=== PATIENT | male | born 1960 | race Caucasian/White ===

== ENCOUNTER 2016-10-12 21:12 | Emergency (ER) | payer OTHER, BC ==
[2016-10-12] MEDS ORDERED: oxyCODONE ER 20 MG TAB.ER PO ONE (21:24)
[2016-10-12] MEDS ORDERED: HYDROmorphone 2 MG/ML SDV IM ONE (21:24)
--- NOTE | 2016-10-12 21:31 | EDM.PDOC ---
ED HPI GENERAL MEDICAL PROBLEM - General Chief Complaint: Upper Extremity Injury/Pain Stated Complaint: PAIN ON THE RT ARM Time Seen by Provider: 10/12/16 21:20 Source of Information: Reports: Patient, Family History Limitations: Reports: No limitations - History of Present Illness INITIAL COMMENTS - FREE TEXT/NARRATIVE: 56 yo male had ORIF of a R hand fx late today in [place]. He got out of the hospital about 5:30 pm with an Rx for immediate relief oxycodone 10 mg with instructions to use 1 po q 12 h prn. His last dose was at 5:30 pm today. Has since taken ibuprofen 800 mg po and still has intolerable pain. Called to [place] and was told to come to the ED. Has a splint on that hand, but not a cast. Has no sedation or nausea so far from the oxydodone. Will be able to get more or stronger pain meds tomorrow from their doctor in [place]. 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, Other (see below) (oxycodone 10 mg immediate relief.) Rt hand Pain Score (Numeric/FACES): 10 - Related Data Allergies Allergy/AdvReac Type Severity Reaction Status Date / Time No Known Allergies Allergy Verified 10/12/16 21:21 Home Meds: Home Meds Citalopram Hydrobromide [Citalopram HBr] 40 mg PO DAILY 06/12/14 [History] Social & Family History - Tobacco Use Smoking Status *Q: Current Every Day Smoker Years of Tobacco use: 40 - Alcohol Use Days Per Week of Alcohol Use: 0 - Recreational Drug Use Recreational Drug Use: No ED ROS GENERAL - Review of Systems Review Of Systems: See Below Constitutional: Reports: no symptoms HEENT: Reports: No symptoms Respiratory: Reports: No Symptoms Cardiovascular: Reports: No symptoms Endocrine: Reports: no symptoms GI/Abdominal: Reports: No symptoms Musculoskeletal: Reports: hand pain (Right) Skin: Reports: no symptoms Neurological: Reports: No Symptoms ED EXAM, GENERAL - Physical Exam Exam: See Below Exam Limited By: Other (extensive padding and splinting material on R hand/ wrist.) General Appearance: alert, WD/WN, no apparent distress Respiratory/Chest: no respiratory distress, lungs clear, normal breath sounds, no accessory muscle use Cardiovascular: regular rate, rhythm, no edema Extremities: other (Good capillary refill and no finger swelling.). No: increased warmth, redness Neurological: alert, oriented, CN II-XII intact, normal cognition, normal gait, no motor/sensory deficits Psychiatric: normal affect, normal mood Skin Exam: Warm, Dry, Intact, Normal color, No rash Lymphatic: no adenopathy Course - Vital Signs Text/Narrative:: Dilaudid 2 mg IM, Oxycontin 20 mg po Last Recorded V/S: Last Vital Signs Temp 35.8 C 10/12/16 21:12 Pulse 72 10/12/16 21:12 Resp 15 10/12/16 21:12 BP 130/69 10/12/16 21:12 Pulse Ox 98 10/12/16 21:12 - Orders/Labs/Meds Meds: Medications Discontinued Medications Generic Name Dose Route Start Last Admin Trade Name Lucia PRN Reason Stop Dose Admin Hydromorphone HCl 2 mg 10/12/16 21:24 10/12/16 21:35 Dilaudid IM 10/12/16 21:25 2 mg ONETIME ONE Administration Oxycodone HCl 20 mg 10/12/16 21:24 10/12/16 21:34 Oxycontin PO 10/12/16 21:25 20 mg ONETIME ONE Administration Departure - Departure Time of Disposition: 22:07 Disposition: Home, Self-Care 01 Condition: fair Clinical Impression: Post-operative pain - Discharge Information Referrals: Ryan Rios MD [Primary Care Provider] - Forms: ED Department Discharge Additional Instructions: Continue your current meds. Elevate your hand. Call your surgeon in the morning for advice.
[2016-10-12 22:20] VITALS: BP 119/70
== END 2016-10-12 22:12 | disposition home or self-care (01) ==
LOC: FB.ED 21:12
DX: G89.18 Other acute postprocedural pain (principal); F17.200 Nicotine dependence, unspecified, uncomplicated; Z79.899 Other long term (current) drug therapy
CPT/HCPCS: 96372; 99283; A9270; J1170

== ENCOUNTER 2018-09-09 02:47 | Emergency (ER) | payer BC ==
[2018-09-09] MEDS ORDERED: Ketorolac 60 MG/2 ML SDV IM ONE (03:03)
[2018-09-09] MEDS ORDERED: Iopamidol 755 Mg/ML 75 ML Bottle IV ONE (03:56)
--- NOTE | 2018-09-09 04:01 | EDM.PDOC ---
ED HPI GENERAL MEDICAL PROBLEM - General Chief Complaint: Back Pain or Injury Stated Complaint: RIB PAIN Time Seen by Provider: 09/09/18 02:47 Source of Information: Reports: Patient History Limitations: Reports: Other (chest wall pain) - History of Present Illness INITIAL COMMENTS - FREE TEXT/NARRATIVE: 58 y.o.w.m came to the ED this am do to right chest wall pain. 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 he was seen at the [facility], rib x rays were taken and found to be neg. Because the pain got worse, he came back to the ED. No N/V/ D, no Dizziness no SOB. He had right lat chest wall pain with palp and by taking a deep breath. No other acute med. issues. BP 147/71 RR 16 Pulse ox 96% on RA pulse 96 temp 36.4 Onset Date: 09/07/18 Onset Time: 08:00 Duration: Day(s): Location: Reports: Chest Quality: Reports: Ache, Dull Severity: Moderate Improves with: Reports: Rest Worsens with: Reports: Movement Context: Reports: Trauma (fell while pumping gas) back Pain Score (Numeric/FACES): 10 - Related Data Allergies Allergy/AdvReac Type Severity Reaction Status Date / Time No Known Allergies Allergy Verified 09/09/18 02:58 Home Meds: Home Meds Citalopram Hydrobromide [Citalopram HBr] 40 mg PO DAILY 06/12/14 [History] Past Medical History HEENT History: Reports: Impaired Vision Genitourinary History: Reports: Renal Calculus Social & Family History - Family History Family Medical History: Noncontributory - Caffeine Use Caffeine Use: Reports: Coffee, Energy Drinks, Soda ED ROS GENERAL - Review of Systems Review Of Systems: See Below Constitutional: Reports: No Symptoms HEENT: Reports: No Symptoms Respiratory: Reports: No Symptoms Cardiovascular: Reports: No Symptoms Endocrine: Reports: No Symptoms GI/Abdominal: Reports: No Symptoms : Reports: No Symptoms Musculoskeletal: Reports: Other (right chest wall pain with deep inspiration) Skin: Reports: No Symptoms Neurological: Reports: No Symptoms Psychiatric: Reports: No Symptoms Hematologic/Lymphatic: Reports: No Symptoms Immunologic: Reports: No Symptoms ED EXAM, GENERAL - Physical Exam Exam: See Below Exam Limited By: No Limitations General Appearance: Alert, WD/WN, Mild Distress Eye Exam: Bilateral Eye: Normal Inspection Ears: Normal External Exam Ear Exam: Bilateral Ear: Auricle Normal Nose: Normal Inspection, Normal Mucosa Throat/Mouth: Normal Inspection, Normal Lips, Normal Voice, No Airway Compromise Head: Atraumatic, Normocephalic Neck: Normal Inspection, Supple, Non-Tender, Full Range of Motion Respiratory/Chest: No Respiratory Distress, Lungs Clear, Decreased Breath Sounds (right lung deu to pain with inspiration) Cardiovascular: Normal Peripheral Pulses, Regular Rate, Rhythm, No Edema, No Gallop Peripheral Pulses: 1+: Radial (L) GI/Abdominal: Normal Bowel Sounds, Soft, Non-Tender, No Organomegaly, No Distention, No Abnormal Bruit, No Mass (Male) Exam: Deferred Rectal (Males) Exam: Deferred Back Exam: Normal Inspection, Full Range of Motion Extremities: Normal Inspection, Normal Range of Motion, Non-Tender, No Pedal Edema Neurological: Alert, Oriented, CN II-XII Intact, Normal Cognition, Normal Gait Psychiatric: Normal Affect, Normal Mood Skin Exam: Warm, Dry, Intact, Normal Color, No Rash Lymphatic: No Adenopathy Course - Vital Signs Text/Narrative:: 58 y.o.w.m came to the ED this am do to right chest wall pain. 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 he was seen at the [facility], rib x rays were taken and found to be neg. Because the pain got worse, he came back to the ED. No N/V/ D, no Dizziness no SOB. He had right lat chest wall pain with palp and by taking a deep breath. No other acute med. issues. BP 147/71 RR 16 Pulse ox 96% on RA pulse 96 temp 36.4 PE: Obese 58 y.o.w.m with right lat CW pain with deep inspiration Imaging: CT chest with contrast: 6th right rib Fx with small pneumo. Impression: Fx'd 6th rib right laterally with small ant pneumothorax Tx: ICE, Toradol Reexam: Improved Plan: D/C with instructions Last Recorded V/S: Last Vital Signs Temp 36.4 C 09/09/18 02:47 Pulse 96 09/09/18 02:47 Resp 16 09/09/18 02:47 BP 147/71 H 09/09/18 02:47 Pulse Ox 94 L 09/09/18 02:47 - Orders/Labs/Meds Orders: Active Orders 24 hr Category Date Time Status Chest w Cont [CT] Stat Exams 09/09/18 03:51 Taken Labs: Laboratory Tests 09/09/18 09/09/18 09/09/18 Range/Units 03:10 03:10 03:10 WBC 9.7 (4.5-12.0) X10-3/uL RBC 5.03 (4.30-5.75) x10(6)uL Hgb 15.3 (13.5-17.8) g/dL Hct 46.4 (30.0-51.3) % MCV 92.4 (80-96) fL MCH 30.5 (27.7-33.6) pg MCHC 33.0 (32.2-35.4) g/dL RDW 12.7 (11.5-15.5) % Plt Count 227 (125-369) X10(3)uL MPV 8.4 (7.4-10.4) fL Neut % (Auto) 67.8 (46-82) % Lymph % (Auto) 14.7 (13-37) % [place] % (Auto) 10.4 (4-12) % Eos % (Auto) 3 (1.0-5.0) % Baso % (Auto) 5 H (0-2) % Neut # (Auto) 6.6 (1.6-8.3) # Lymph # (Auto) 1.4 (0.6-5.0) # [place] # (Auto) 1.0 (0.0-1.3) # Eos # (Auto) 0.3 (0.0-0.8) # Baso # (Auto) 0.4 H (0.0-0.2) # D-Dimer, Quantitative 0.48 (0.0-0.59) mg/LFEU Sodium 139 (135-145) mmol/L Potassium 4.4 (3.5-5.3) mmol/L Chloride 106 (100-110) mmol/L Carbon Dioxide 25 (21-32) mmol/L BUN 20 H (7-18) mg/dL Creatinine 0.8 (0.70-1.30) mg/dL Est Cr Clr Drug Dosing TNP Estimated GFR (MDRD) > 60 (>60) BUN/Creatinine Ratio 25.0 H (9-20) Glucose 121 H (80-116) mg/dL Calcium 8.3 L (8.6-10.2) mg/dL Total Bilirubin 0.5 (0.1-1.3) mg/dL Direct Bilirubin 0.13 (0.10-0.20) mg/dL AST 14 (5-25) IU/L ALT 18 (12-36) U/L Alkaline Phosphatase 70 (56-112) IU/L Total Protein 6.4 (6.0-8.0) g/dL Albumin 3.6 (3.5-5.2) g/dL Meds: Medications Discontinued Medications Generic Name Dose Route Start Last Admin Trade Name Freq PRN Reason Stop Dose Admin Iopamidol 75 ml 09/09/18 03:56 09/09/18 04:21 Isovue-370 (76%) IV 09/09/18 03:57 75 ml ASDIRECTED ONE Administration Ketorolac Tromethamine 60 mg 09/09/18 03:03 Toradol IM 09/09/18 03:04 ONETIME ONE Departure - Departure Time of Disposition: 04:53 Disposition: Home, Self-Care 01 Condition: Good Clinical Impression: Pneumothorax on right Rib fracture Qualifiers: Rib fracture type: single rib Fracture type: closed Laterality: right - Discharge Information Instructions: Rib Fracture, Pneumothorax, Rib Contusion Referrals: Ryan Rios MD [Primary Care Provider] - Forms: ED Department Discharge, ED Return to Work/School Form Additional Instructions: Please apply ice to the affected area, please take Motrin 800 mg every 6-8 hours , Please follow up in 3 days, please come back if your symptoms get worse acutely - My Orders Last 24 Hours: My Active Orders 09/09/18 03:51 Chest w Cont [CT] Stat - Assessment/Plan Last 24 Hours: My Active Orders 09/09/18 03:51 Chest w Cont [CT] Stat
[2018-09-09 05:37] VITALS: BP 145/72
== END 2018-09-09 04:15 | disposition home or self-care (01) ==
LOC: FB.ED 02:47
DX: S22.31XA Fracture of one rib, right side, initial encounter for closed fracture (principal); J93.9 Pneumothorax, unspecified; W18.39XA Other fall on same level, initial encounter; Z79.899 Other long term (current) drug therapy
CPT/HCPCS: 36415; 71260; 80048; 80076; 85025; 85379; 96372; 99284; J1885; Q9967

== ENCOUNTER 2020-04-22 02:00 | Emergency (ER) | payer BC ==
[2020-04-22] MEDS ORDERED: Ketorolac 30 MG/ML SDV IVPUSH ONE (02:48)
[2020-04-22] MEDS ORDERED: Aspirin 81 MG Tab.Chew PO ONE (03:06)
[2020-04-22] MEDS ORDERED: Nitroglycerin 0.4 MG Tab.SL SL PRN (03:07)
[2020-04-22 03:27] VITALS: BP 141/68; PULSE 77
--- NOTE | 2020-04-22 03:27 | EDM.PDOC ---
ED HPI GENERAL MEDICAL PROBLEM - General Chief Complaint: Chest Pain Stated Complaint: CHEST PAIN Time Seen by Provider: 04/22/20 02:15 Source of Information: Reports: Patient, Family History Limitations: Reports: No Limitations - History of Present Illness INITIAL COMMENTS - FREE TEXT/NARRATIVE: Patient presented to the ED because of chest pain which woke him from his sleep at 0130. The pain is pleuritic type, 7/10, without any associated, nausea,vomiting, dyspnea or diaphoresis. There is no cough/cold symptoms, fever, or chills. He had the same episode of chest pain 2 days ago which went away on it's own. left lower chest Pain Score (Numeric/FACES): 9 - Related Data Allergies Allergy/AdvReac Type Severity Reaction Status Date / Time No Known Allergies Allergy Verified 09/09/18 02:58 Home Meds: Home Meds Citalopram Hydrobromide [Citalopram HBr] 40 mg PO DAILY 06/12/14 [History] predniSONE [Prednisone] 40 mg PO DAILY #10 tablet 04/22/20 [Rx] Past Medical History HEENT History: Reports: Impaired Vision Respiratory History: Reports: Other (See Below) Other Respiratory History: smoker since 16 years old. Genitourinary History: Reports: Renal Calculus Social & Family History - Family History Family Medical History: No Pertinent Family History - Tobacco Use Tobacco Use Status *Q: Current Every Day Tobacco User Years of Tobacco use: 44 Packs/Tins Daily: 0.5 Used Tobacco, but Quit: No Second Hand Smoke Exposure: No - Caffeine Use Caffeine Use: Reports: Coffee, Soda - Alcohol Use Days Per Week of Alcohol Use: 7 Number of Drinks Per Day: 2 Total Drinks Per Week: 14 - Recreational Drug Use Recreational Drug Use: No ED ROS GENERAL - Review of Systems Review Of Systems: See Below Constitutional: Reports: No Symptoms HEENT: Reports: No Symptoms Respiratory: Reports: No Symptoms Cardiovascular: Reports: Chest Pain Endocrine: Reports: No Symptoms GI/Abdominal: Reports: No Symptoms : Reports: No Symptoms Musculoskeletal: Reports: No Symptoms Skin: Reports: No Symptoms Neurological: Reports: No Symptoms ED EXAM, GENERAL - Physical Exam Exam: See Below Exam Limited By: No Limitations General Appearance: Alert, No Apparent Distress Eye Exam: Bilateral Eye: PERRL Ears: Normal External Exam, Normal Canal Nose: Normal Inspection, Normal Mucosa Throat/Mouth: Normal Inspection, Normal Lips Head: Atraumatic, Normocephalic Neck: Normal Inspection, Supple, Non-Tender, Full Range of Motion Respiratory/Chest: No Respiratory Distress, Lungs Clear, Normal Breath Sounds, Chest Non-Tender Cardiovascular: Normal Peripheral Pulses, Regular Rate, Rhythm, No Edema, No Gallop GI/Abdominal: Normal Bowel Sounds, Soft, Non-Tender, No Organomegaly Back Exam: Normal Inspection, Full Range of Motion Extremities: Normal Inspection, Normal Range of Motion, Non-Tender Course - Vital Signs Text/Narrative:: Labs/EKG/CXR result was discussed with patient EKG-NSR CXR-neg ASA 324 mg po x1 NTG 0.4 mg SL x1 Toradol 30 mg IV x1 Dilaudid 1mg IV x1 Last Recorded V/S: Last Vital Signs Temp 36.7 C 04/22/20 02:05 Pulse 80 04/22/20 02:05 Resp 16 04/22/20 02:05 BP 136/65 04/22/20 03:08 Pulse Ox 96 04/22/20 02:05 - Orders/Labs/Meds Orders: Active Orders 24 hr Category Date Time Status EKG Documentation Completion [RC] ASDIRECTED Care 04/22/20 02:38 Active Chest 2V [CR] Stat Exams 04/22/20 02:24 Taken D-DIMER QUANTITATIVE [COAG] Stat Lab 04/22/20 02:25 Received Nitroglycerin [Nitrostat] Med 04/22/20 03:07 Active 0.4 mg SL Q5M PRN EKG 12 Lead [EK] Routine Ther 04/22/20 02:05 Ordered Medication Orders Nitroglycerin (Nitrostat) 0.4 mg SL Q5M PRN PRN Reason: Chest Pain Last Admin: 04/22/20 03:08 Dose: 0.4 mg Documented by: JAZZ Labs: Laboratory Tests 04/22/20 04/22/20 04/22/20 Range/Units 02:25 02:25 02:25 WBC 6.1 (3.2-10.1) x10-3/uL RBC 4.79 (3.90-5.90) x10(6)uL Hgb 14.9 (12.9-17.7) g/dL Hct 44.2 (38.3-50.1) % MCV 92.3 (80.8-98.7) fL MCH 31.0 (27.0-33.3) pg MCHC 33.6 (28.7-35.3) g/dL RDW 13.0 (12.4-15.0) % Plt Count 205 (117-477) x10(3)uL MPV 8.7 (6.7-11.0) fL Neut % (Auto) 54.6 (40.3-71.8) % Lymph % (Auto) 26.8 (15.8-45.3) % [place] % (Auto) 13.8 (5.5-15.2) % Eos % (Auto) 3.6 (0.1-6.8) % Baso % (Auto) 1.2 (0.3-3.8) % Neut # (Auto) 3.3 (1.7-6.9) x10-3/uL Lymph # (Auto) 1.6 (0.5-4.5) x10-3/uL [place] # (Auto) 0.8 (0.0-1.2) x10-3/uL Eos # (Auto) 0.2 (0.0-0.6) x10-3/uL Baso # (Auto) 0.1 (0.0-0.3) x10-3/uL Sodium 142 (135-145) mmol/L Potassium 4.1 (3.5-5.3) mmol/L Chloride 105 (100-110) mmol/L Carbon Dioxide 27 (21-32) mmol/L BUN 22 H (7-18) mg/dL Creatinine 0.8 (0.70-1.30) mg/dL Est Cr Clr Drug Dosing 120.56 mL/min Estimated GFR (MDRD) > 60 (>60) BUN/Creatinine Ratio 27.5 H (9-20) Glucose 114 (80-116) mg/dL Calcium 8.1 L (8.6-10.2) mg/dL Total Bilirubin 0.3 (0.1-1.3) mg/dL AST 20 D (5-25) IU/L ALT 31 D (12-36) U/L Alkaline Phosphatase 86 (56-112) IU/L Troponin I 8.2 (4.0-60.3) pg/mL Total Protein 6.8 (6.0-8.0) g/dL Albumin 3.5 (3.2-4.6) g/dL Globulin 3.3 g/dL Albumin/Globulin Ratio 1.1 Meds: Medications Generic Name Dose Route Start Last Admin Trade Name Lucia PRN Reason Stop Dose Admin Nitroglycerin 0.4 mg 04/22/20 03:07 04/22/20 03:08 Nitrostat SL 0.4 mg Q5M PRN Administration Chest Pain Discontinued Medications Generic Name Dose Route Start Last Admin Trade Name Lucia PRN Reason Stop Dose Admin Aspirin 324 mg 04/22/20 03:06 04/22/20 03:07 Aspirin PO 04/22/20 03:07 324 mg ONETIME ONE Administration Ketorolac Tromethamine 30 mg 04/22/20 02:48 04/22/20 02:51 Toradol IVPUSH 04/22/20 02:49 30 mg ONETIME ONE Administration Departure - Departure Time of Disposition: 04:00 Disposition: Home, Self-Care 01 Condition: Good Clinical Impression: Chest pain, atypical, Pleurisy Prescriptions: predniSONE [Prednisone] 40 mg PO DAILY #10 tablet Referrals: Ryan Rios MD [Primary Care Provider] - Additional Instructions: Please read discharge instructions on Pleuritic pain Take prednisone 20 mg, 2 tablets once daily for 5 days Take Ibuprofen 800 mg with tylenol 1000 mg every 8 hourd as needed for pain Follow up as needed Sepsis Event Note (ED) - Evaluation Sepsis Screening Result: No Definite Risk - Focused Exam Vital Signs: Vital Signs Temp Pulse Resp BP BP Pulse Ox 04/22/20 03:08 136/65 04/22/20 02:05 36.7 C 80 16 145/67 H 96 - My Orders Last 24 Hours: My Active Orders 04/22/20 02:05 EKG 12 Lead [EK] Routine 04/22/20 02:24 Chest 2V [CR] Stat 04/22/20 02:25 D-DIMER QUANTITATIVE [COAG] Stat 04/22/20 02:38 EKG Documentation Completion [RC] ASDIRECTED 04/22/20 03:07 Nitroglycerin [Nitrostat] 0.4 mg SL Q5M PRN - Assessment/Plan Last 24 Hours: My Active Orders 04/22/20 02:05 EKG 12 Lead [EK] Routine 04/22/20 02:24 Chest 2V [CR] Stat 04/22/20 02:25 D-DIMER QUANTITATIVE [COAG] Stat 04/22/20 02:38 EKG Documentation Completion [RC] ASDIRECTED 04/22/20 03:07 Nitroglycerin [Nitrostat] 0.4 mg SL Q5M PRN
[2020-04-22] MEDS ORDERED: Acetaminophen/HYDROcodone 325-5 MG Tab PO ONE (03:40)
[2020-04-22] MEDS ORDERED: methylPREDNISolone Sodium Succinate 125 MG/2 ML SDV IVPUSH ONE (03:45)
--- NOTE | 2020-04-22 13:22 | CR ---
INDICATION: Chest pain. CHEST TWO VIEWS: PA and lateral views of the chest 04/22/20 were compared with 09/08/18 and revealed the heart to remain normal in size and shape. The aorta is somewhat tortuous. Bony structures are grossly intact. Overlying EKG leads are noted. Markings appear similar to the previous examination and are somewhat heavy on the left, perhaps more so than on the previous study raising question of a minimal patchy pneumonia in that area. The right lung revealed no specific findings to suggest pneumonia. No definite pleural effusions were seen. IMPRESSION: 1. Probable patchy infiltration at the left lower lobe and possibly lingula. 2. ASD aorta, mild. MTDD
== END 2020-04-22 04:10 | disposition home or self-care (01) ==
LOC: FB.ED 02:00
DX: R09.1 Pleurisy (principal); F17.210 Nicotine dependence, cigarettes, uncomplicated; Z79.899 Other long term (current) drug therapy
CPT/HCPCS: 36415; 71046; 80053; 84484; 85025; 85379; 93005; 96374; 96375; 99285; A9270; J1885; J2930

== ENCOUNTER 2021-10-12 16:15 | Emergency (ER) | payer OTHER, BC ==
[2021-10-12] MEDS ORDERED: Cephalexin 500 MG Cap PO ONE (16:16)
[2021-10-12] MEDS ORDERED: Acetaminophen/HYDROcodone 325-5 MG Tab PO ONE (16:16)
[2021-10-12] MEDS: Cephalexin 500 MG Cap PO STA (19:00)
[2021-10-12 19:17] VITALS: BP 141/80; PULSE 81
== END 2021-10-12 18:30 | disposition home or self-care (01) ==
LOC: FB.ED 16:15
DX: S67.191A Crushing injury of left index finger, initial encounter (principal); S68.111A Complete traumatic metacarpophalangeal amputation of left index finger, initial encounter; Z72.0 Tobacco use; W23.1XXA Caught, crushed, jammed, or pinched between stationary objects, initial encounter
CPT/HCPCS: 73140; 99282; 99283; A9270

== ENCOUNTER 2024-04-29 04:04 | Emergency (ER) | payer BC, OTHER ==
[2024-04-29 04:26] VITALS: BP 156/74; PULSE 103
[2024-04-29 04:56] LABS: BASOPHILS ABSOLUTE AUTO 0.1 x10-3/uL (0.0-0.3); BLOOD UREA NITROGEN,BUN 24 mg/dL (7-18); BUN/CREATININE RATIO 21.8 (9-20); CALCIUM 9.5 mg/dL (8.6-10.2); CARBON DIOXIDE,CO2 23 mmol/L (21-32); CHLORIDE,CL 106 mmol/L (100-110); CREATININE 1.1 mg/dL (0.70-1.30); EOSINOPHILS ABSOLUTE AUTO 0.1 x10-3/uL (0.0-0.6); EST CRCL DRUG DOSING (CG) 78.88 mL/min; ESTIMATED GFR 75 mL/min (>60); GLUCOSE RANDOM 103 mg/dL (80-116); HEMOGLOBIN 16.8 g/dL (12.9-17.7); LYMPHOCYTES ABSOLUTE AUTO 1.7 x10-3/uL (0.5-4.5); POTASSIUM,K 3.3 mmol/L (3.5-5.3); SODIUM,NA 143 mmol/L (135-145)
[2024-04-29 05:02] LABS: A/G RATIO 1.3; ALANINE AMINOTRANSFERASE,ALT 26 U/L (12-36); ALBUMIN 3.8 g/dL (3.2-4.6); ALKALINE PHOSPHATASE 90 IU/L (56-112); ASPARTATE AMNIOTRANSFERASE,AST 15 IU/L (5-25); BILIRUBIN TOTAL 0.1 mg/dL (0.1-1.3); PROTEIN TOTAL,TP 6.8 g/dL (6.0-8.0)
[2024-04-29 05:07] LABS: BASOPHILS PERCENT AUTO 1.2 % (0.3-3.8); EOSINOPHILS PERCENT AUTO 1.2 % (0.1-6.8); HEMATOCRIT 47.9 % (38.3-50.1); MEAN CORPUSCULAR HEMOGLOBIN 32.5 pg (27.0-33.3); MEAN CORPUSCULAR VOLUME 92.9 fL (80.8-98.7); MEAN PLATELET VOLUME 9.5 fL (6.7-11.0); MONOCYTES ABSOLUTE AUTO 0.6 x10-3/uL (0.0-1.2); MONOCYTES PERCENT AUTO 6.9 % (5.5-15.2); NEUTROPHILS ABSOLUTE AUTO 6.7 x10-3/uL (1.7-6.9); NEUTROPHILS PERCENT AUTO 72.7 % (40.3-71.8); PLATELET COUNT,PLT 220 x10(3)uL (117-477); RED BLOOD CELL COUNT 5.16 x10(6)uL (3.90-5.90); RED CELL DISTRIBUTION WIDTH 13.3 % (12.4-15.0); WHITE BLOOD CELL COUNT,WBC 9.8 x10-3/uL (3.2-10.1)
[2024-04-29 05:13] LABS: BASE EXCESS VENOUS,POC -4 mmol/L (-2 - 3+); PCO2 VENOUS,POC 39 mmHg (41-51); PH VENOUS,POC 7.35 pH Units (7.32-7.43)
== END 2024-04-29 08:10 | disposition home or self-care (01) ==
LOC: FB.ED 04:04
DX: R45.851 Suicidal ideations (principal); F10.129 Alcohol abuse with intoxication, unspecified; Z79.899 Other long term (current) drug therapy; Y90.6 Blood alcohol level of 120-199 mg/100 ml
CPT/HCPCS: 36415; 80053; 80307; 84484; 85025; 93005; 93010; 99284; 99285

== ENCOUNTER 2025-04-27 00:10 | Emergency (ER) | payer OTHER ==
[2025-04-27] MEDS: Ketorolac 30 MG/ML SDV IM ONE (01:55)
[2025-04-27 02:30] VITALS: BP 133/58; PULSE 88
== END 2025-04-27 02:20 | disposition home or self-care (01) ==
LOC: FB.ED 00:10
DX: S06.0X1A Concussion with loss of consciousness of 30 minutes or less, initial encounter (principal); S83.92XA Sprain of unspecified site of left knee, initial encounter; S00.01XA Abrasion of scalp, initial encounter; I10 Essential (primary) hypertension; E66.9 Obesity, unspecified; Z79.899 Other long term (current) drug therapy; Z68.31 Body mass index [BMI] 31.0-31.9, adult; W01.198A Fall on same level from slipping, tripping and stumbling with subsequent striking against other object, initial encounter
CPT/HCPCS: 36415; 70450; 73700; 80320; 96372; 99000; 99284; J1885; G0480